=== PATIENT | female | born 1980 | race American Indian/Alaskan Native ===

== ENCOUNTER 2017-05-18 22:12 | Emergency (ER) | payer MEDICARE ==
[2017-05-19 00:22] LABS: Basophils % (Auto) 0.6 % (0.0-1.8); Eosinophils % (Auto) 0.9 % (0.0-4.3); Hematocrit 40.5 % (30.3-42.9); Hemoglobin 13.4 gm/dl (10.1-14.3); Mean Corpuscular HGB Conc 33 % (30-34); Mean Corpuscular Hemoglobin 31 pg (28-32); Mean Corpuscular Volume 94 fl (79-97); Platelet Count 173 K/mm3 (140-440); Red Blood Count 4.31 M/mm3 (3.65-5.03); Red Cell Distribution Width 14.9 % (13.2-15.2); White Blood Count 8.4 K/mm3 (4.5-11.0)
[2017-05-19 00:31] LABS: Anion Gap 18 mmol/L; BUN/Creatinine Ratio 17; Blood Urea Nitrogen 10 mg/dL (7-17); Calcium 9.4 mg/dL (8.4-10.2); Carbon Dioxide 23 mmol/L (22-30); Chloride 103.2 mmol/L (98-107); Glucose 84 mg/dL (65-100); Potassium 3.7 mmol/L (3.6-5.0); Sodium 140 mmol/L (137-145)
[2017-05-19 01:14] LABS: Bilirubin,Urine NEG (Negative); Blood,Urine NEG (Negative); Ketones,Urine NEG (Negative); Leukocyte Esterase,Urine LG (Negative); Mucus,Urine FEW /HPF; Nitrite,Urine NEG (Negative); Protein,Urine <15 mg/dL mg/dL (Negative)
[2017-05-19 13:30] VITALS: BP 106/65
--- NOTE | 2017-05-19 14:29 | Emergency Department Report ---
HPI - General Chief Complaint: Back Pain/Injury Time Seen by Provider: 05/19/17 13:53 - HPI HPI: This is a 37 year-old female presents to the emergency department [facility] the patient had an acute on chronic exacerbation of low back pain. Patient has history of MS and has a history of low back spasms. She has not taken anything for her symptoms recently. She says she has not had her medications that she takes for multiple sclerosis in about 6 months. She says she has both a primary care physician and a neurologist in [place] but cannot currently rhythm names and has not seen him in a while. She denies any problems with bowel or bladder, numbness or paresthesias or any other neurological deficits. No recent travel or sick contacts at home. ED Past Medical Hx - Past Medical History Previous Medical History?: Yes Hx Psychiatric Treatment: Yes Hx Asthma: Yes Additional medical history: MS, heart murmur - Surgical History Past Surgical History?: Yes Additional Surgical History: Jaw - Social History Smoking Status: Former Smoker Substance Use Type: Marijuana - Medications Home Medications: Home Medications Medication Instructions Recorded Confirmed Last Taken Type Zolpidem [Ambien] 10 mg PO HS 09/09/13 10/15/13 10/10/13 History Promethazine [Phenergan] 25 mg PO Q6H PRN #20 tablet 09/10/13 10/15/13 10/11/13 Rx Divalproex [Karen Delacruz] 1,000 mg PO QHS 10/13/13 10/15/13 Unknown History Escitalopram Oxalate [Lexapro] 10 mg PO QDAY 10/13/13 10/15/13 10/12/13 History Nitrofurantoin Finney/M-Cryst 100 mg PO Q12HR #14 capsule 10/16/13 Unknown Rx [Macrobid] HYDROcodone/APAP 5-325 [Seymour 1 each PO Q6HR PRN #14 tablet 07/19/15 Unknown Rx 5/325] Ibuprofen [Motrin] 600 mg PO Q8H PRN #60 tablet 07/19/15 Unknown Rx Sulfamethoxazole/Trimethoprim 1 each PO BID #14 tablet 07/19/15 Unknown Rx [Bactrim DS TAB] Amoxicillin [Amoxicillin 250 MG/5 500 mg PO BID #140 ml 10/01/15 Unknown Rx Ml] HYDROcodone/ACETAMINOPHEN [Lortab 15 ml PO Q4-6H PRN #473 ml 10/01/15 Unknown Rx 10 mg-300 mg per 15 ML ORAL LIQ] Diazepam [Valium] 5 mg PO BID PRN #12 tablet 05/19/17 Unknown Rx Nitrofurantoin Monohyd/M-Cryst 100 mg PO BID #14 capsule 05/19/17 Unknown Rx [Macrobid 100 mg Capsule] ED Review of Systems ROS: Stated complaint: MS EXACERVATION Other details as noted in HPI Comment: All other systems reviewed and negative Constitutional: denies: chills, fever Eyes: denies: eye pain, eye discharge, vision change ENT: denies: ear pain, throat pain Respiratory: denies: cough, shortness of breath, wheezing Cardiovascular: denies: chest pain, palpitations Gastrointestinal: denies: abdominal pain, nausea, diarrhea Genitourinary: denies: urgency, dysuria, discharge Musculoskeletal: back pain. denies: arthralgia Skin: denies: rash, lesions Neurological: denies: headache, weakness, paresthesias Physical Exam - Physical Exam Vital Signs: Vital Signs 05/18/17 05/18/17 05/19/17 23:29 23:32 13:26 Temperature 98 F 98 F 98.8 F Pulse Rate 81 78 74 Respiratory 18 18 16 Rate Blood Pressure 133/77 Blood Pressure 133/77 106/65 [Right] O2 Sat by Pulse 98 100 99 Oximetry Physical Exam: GENERAL: The patient is well-developed well-nourished. HENT: Normocephalic. Atraumatic. Patient has moist mucous membranes. EYES: Extraocular motions are intact. Pupils equal reactive to light bilaterally. NECK: Supple. Trachea is midline. CHEST/LUNGS: Clear to auscultation. There is no respiratory distress noted. HEART/CARDIOVASCULAR: Regular. There is no tachycardia. There is no gallop rub or murmur. ABDOMEN: Abdomen is soft, nontender. Patient has normal bowel sounds. There is no abdominal distention. SKIN: There is no rash. There is no edema. There is no diaphoresis. NEURO: The patient is awake, alert, and oriented. The patient is cooperative. The patient has no focal neurologic deficits. The patient has normal speech. MUSCULOSKELETAL: There is no tenderness or deformity. There is no limitation range of motion. There is no evidence of acute injury. Muscle strength 5 out of 5 upper and lower extremity is including EHL bilaterally. BACK: No midline thoracic or lumbar tenderness to palpation, step-off or deformity. There is some reproducible tenderness palpation to the bilateral paraspinal muscles of the lumbar back. ED Course Vital Signs 05/18/17 05/18/17 05/19/17 23:29 23:32 13:26 Temperature 98 F 98 F 98.8 F Pulse Rate 81 78 74 Respiratory 18 18 16 Rate Blood Pressure 133/77 Blood Pressure 133/77 106/65 [Right] O2 Sat by Pulse 98 100 99 Oximetry ED Medical Decision Making - Lab Data Result diagrams: 05/18/17 23:56 05/18/17 23:56 - Medical Decision Making 37-year-old female with a history of multiple sclerosis presents with nontraumatic acute on chronic low back pain and muscle spasms. The patient has been noncompliant with follow-up with her primary care physician and with the medications used to control her multiple sclerosis. She denies any problems with bowel or bladder, numbness or paresthesias or any acute neurological deficits. When sitting or laying on the gurney, the patient appears to have full muscle strength to upper and lower extremities. She appears low suspicion for any of the emergent back condition such as cauda equina, epidural abscess or cord compression syndrome. She was given a single dose of Valium as a muscle relaxant and also was given a Macrobid for a mild urinary tract infection. She was reassessed about 45 minutes after receiving these medications and patient says she is feeling much better. She no longer feels that she needs the pain for ambulatory assistance but she came in with. Originally the patient was seen with some spasmodic back pains and this too appears to have resolved. Vital signs stable throughout her ED course. Since the patient does not have any neurological deficits and this was atraumatic, I did not feel any imaging was necessary at this time. The patient says that she will be following up with her primary care doctor in the next week or so. She was given a small amount of Valium to be used as a muscle relaxant and was given antibiotics for urinary tract infection. She will continue the ER with any worsening of her symptoms or any acute distress. - Differential Diagnosis muscle spasm, sciatica, lumbar sprain multiple sclerosis Critical Care Time: No Critical care attestation.: If time is entered above; I have spent that time in minutes in the direct care of this critically ill patient, excluding procedure time. ED Disposition Clinical Impression: Multiple sclerosis, Back spasm Back pain Qualifiers: Back pain location: low back pain Chronicity: chronic Back pain laterality: bilateral Sciatica presence: without sciatica Qualified Code(s): M54.5 - Low back pain Disposition: TO HOME OR SELFCARE Is pt being admited?: No Condition: Stable Instructions: Muscle Spasm (ED), Back Pain (ED) Additional Instructions: Please follow-up with your primary care physician in the next few days. Return to the emergency Department with any worsening of your symptoms or any acute distress. You have been prescribed a medication that is sedating and therefore should not be taken prior to driving, working, and responsible for children and in no way should be mixed with alcohol of any quantity. This medication should also not be mixed with any other potential sedating medications such as sleeping agents. Prescriptions: Diazepam [Valium] 5 mg PO BID PRN #12 tablet PRN Reason: Muscle Spasm Referrals: ROB SAWYER NP [Primary Care Provider] - 3-5 Days Time of Disposition: 16:54
[2017-05-19] MEDS: VALIUM PO ONE (15:06)
[2017-05-19] MEDS: MACROBID PO ONE (16:01)
== END 2017-05-19 17:18 | disposition home or self-care (01) ==
LOC: ED 22:12
DX: M54.5 Low back pain (principal); G89.29 Other chronic pain; G35 Multiple sclerosis; M62.830 Muscle spasm of back; J45.909 Unspecified asthma, uncomplicated; F12.10 Cannabis abuse, uncomplicated; Z87.891 Personal history of nicotine dependence
CPT/HCPCS: 36415; 80048; 81001; 84703; 85025; 93005; 93010; 99283

== ENCOUNTER 2019-12-06 17:06 | Emergency (ER) | payer MEDICARE ==
[2019-12-06 17:21] VITALS: BP 113/69
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
[2019-12-06] MEDS ORDERED: IBUPROFEN 800 MG TAB PO ONE (17:41)
[2019-12-06] MEDS ORDERED: traMADol 50 MG TAB PO ONE (17:41)
[2019-12-06] MEDS ORDERED: CYCLOBENZAPRINE 10 MG TAB PO ONE (17:41)
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
--- NOTE | 2019-12-06 23:34 | XRay Report ---
Chest with right RIBS 3 views. HISTORY: Right rib pain. FINDINGS: Heart size is normal. Negative for edema, effusion or infiltrate. Negative for bony injury. Signer Name: Dl Wahl MD Signed: 12/06/2019 11:30 PM Workstation Name: [id number]
== END 2019-12-06 23:51 | disposition home or self-care (01) ==
LOC: ED 17:06
DX: R07.81 Pleurodynia (principal); J45.909 Unspecified asthma, uncomplicated; Z79.899 Other long term (current) drug therapy
CPT/HCPCS: 99283